=== PATIENT | male | born 1975 | race Two or more races ===

== ENCOUNTER 2023-12-11 01:06 | Inpatient (IN) | payer OTHER ==
[~2023-12-11] VITALS: Ht 180.3 cm; Wt 93.0 kg
[2023-12-11] MEDS ORDERED: CLONAZEPAM2 MG PO (01:16)
[2023-12-11] MEDS ORDERED: LEXAPRO20 MG (01:17)
[2023-12-11] MEDS ORDERED: OMEPRAZOLE40 MG PO (01:17)
[2023-12-11] MEDS ORDERED: CELEBREX200MG PO (01:18)
--- NOTE | 2023-12-11 01:18 | NUR ---
SE RECIBE PTE ALERTA Y ORIENTADO X3 EL MISMO REFIERE DOLOR DE COLLIN, CORPORAL Y DE GARGANTA DESDE HACE 3 VASQUEZ. REFIERE QUE TIENE NINA TOS SECA QUE NO LO JOSE DORMIR. SE LE MIDEN SV Y SE UBICA.
[2023-12-11] MEDS ORDERED: ALBUTEROL SULFATE 3 ML/2.5 MG AMPUL.NEB IH STA (03:00)
[2023-12-11] MEDS ORDERED: ACETAMINOPHEN 500 MG GEL..CAP PO STA (03:01)
[2023-12-11] MEDS ORDERED: HYDROCODONE/CHLORPHEN P-STIREX 5 ML ML PO STA (03:01)
[2023-12-11] MEDS ORDERED: ACETAMINOPHEN 500 MG GEL..CAP PO ONE (03:04)
--- NOTE | 2023-12-11 03:04 | NUR ---
PTE MASCULINO EVALUADO POR . SE ORIENTA SOBRE ORDEN DE TX REFIERE COMPRENDER. SE COLECTAN MUESTRAS DE LABORATORIOS, BAJO MEDIDAS ASEPTICAS. SE ADMINISTRAN MEDICAMENTOS, BAJO MEDIDAS ASEPTICAS. SE NOTIFICAN TERAPIAS Y ABGS A . SE NOTIFICA A RADIOLOGIA PARA XRAY PENDIENTE.
[2023-12-11] MEDS ORDERED: ALBUTEROL SULFATE 3 ML/2.5 MG AMPUL.NEB IH ONE ×5 (03:20→11:43)
[2023-12-11 03:27] LABS: ABG PH 7.446 (7.35-7.45); ABG PO2 67.2 mmHg (80-100); ABG pCO2 40.6 mmHg (35-45); BASE EXCESS 3.1 mmol/l; BICARBONATE 27.3 mmol/l (23-25); SaO2 94.1 %; Tco2 28.6 mmol/l
[2023-12-11 03:29] LABS: URINE APPEARANCE Clear; URINE BILIRRUBIN Negative (NEGATIVE); URINE BLOOD Small; URINE COLOR Yellow; URINE GLUCOSE Negative (NEGATIVE); URINE KETONE Negative (NEGATIVE); URINE LEUKOCYTE Negative; URINE NITRATE Negative; URINE PROTEIN Negative (NEGATIVE); URINE UROBILINOGEN 0.2 E.U./dl
[2023-12-11 03:30] LABS: HEMATOCRIT 38.2 % (39.0-48.0); HEMOGLOBIN 13.3 g/dL (13-16.00); MEAN CELL VOLUME 92.7 fL (80.0-100.00); MEAN CORPUSCULAR HEMOGLOBIN 32.3 pg (27.00-32.0); MEAN CORPUSCULAR HGB CONC 34.9 g/dl (32.0-36.0); PLATELET COUNT 350 K/uL (150-450); RED BLOOD COUNT 4.12 M/uL (4.00-6.00); RED CELL DISTRIBUTION WIDTH 13.8 % (11.5-14.5)
[2023-12-11 03:33] LABS: URINE WBC 1.9 uL (0.0-23.2)
[2023-12-11 03:38] LABS: URINE BACTERIA 0 uL (0.0-1933)
[2023-12-11 03:45] LABS: allen test SATISFACTORY; o2 21 %; puncture site RADIAL LEFT
[2023-12-11] MEDS ORDERED: ALBUTEROL SULFATE 3 ML/2.5 MG AMPUL.NEB IH SCH ×3 (04:00→12:00)
[2023-12-11] MEDS ORDERED: CEFTRIAXONE SODIUM 1,000 MG VIAL IV STA (05:04)
[2023-12-11] MEDS ORDERED: CEFTRIAXONE SODIUM 1,000 MG VIAL ONE (05:11)
--- NOTE | 2023-12-11 05:26 | NUR ---
SE KIMBERLY MUESTRAS DE LABORATORIO NUEVAS WILBER ORDEN MEDICA. SE NOTIFICAN TERAPIAS DE SEGUIMIENTO A PERSONAL DE TERAPIA RESPIRATORIA. SE COLOCA CN A 3LTS.
[2023-12-11] MEDS ORDERED: SODIUM CHLORIDE 0.45 % 1,000 ML IV SCH (10:45)
[2023-12-11] MEDS ORDERED: HYDROCODONE/CHLORPHEN P-STIREX 5 ML ML PO SCH (10:47)
[2023-12-11] MEDS ORDERED: CEFEPIME HCL 1,000 MG VIAL IV SCH (10:47)
[2023-12-11] MEDS ORDERED: DOXYCYCLINE HYCLATE 100 MG in 0.9 % SODIUM CHLORIDE 250 ML IV SCH (10:47)
[2023-12-11] MEDS ORDERED: PANTOPRAZOLE SODIUM 40 MG/VIAL VIAL IV PUSH SCH (10:48)
[2023-12-11] MEDS ORDERED: RIVAROXABAN 10 MG TAB PO SCH (10:49)
[2023-12-11] MEDS ORDERED: METHYLPREDNISOLONE SOD SUCC 40 MG VIAL IV SCH (10:49)
[2023-12-11] MEDS ORDERED: BUDESONIDE 0.5 MG/2 ML AMPUL.NEB IH SCH (10:51)
[2023-12-11 11:41] LABS: ABG PH 7.501 (7.35-7.45); ABG PO2 71.3 mmHg (80-100); ABG pCO2 35.6 mmHg (35-45); BASE EXCESS 4.2 mmol/l; BICARBONATE 27.2 mmol/l (23-25); SaO2 95.8 %; Tco2 28.3 mmol/l
[2023-12-11] MEDS ORDERED: GUAIFENESIN 200 MG/10 ML BLIST.PACK PO SCH (12:00)
[2023-12-11 12:11] LABS: o2 32 %; puncture site BRADIAL LEFT
[2023-12-11 12:49] LABS: ALBUMIN 3.3 gm/dL (3.4-5.0); BILIRUBIN TOTAL 0.39 mg/dL (0.3-1.2); CALCIUM 9.3 mg/dL (8.5-10.1); CREATININE SERUM 0.83 mg/dL (0.70-1.30); GFR 98.88; GLOBULINA 4.4 G/DL (2.4-3.5); POTASSIUM 3.83 mEq/L (3.5-5.1); TOTAL PROTEIN 7.7 gm/dL (6.4-8.2)
[2023-12-11] MEDS ORDERED: DOXYCYCLINE HYCLATE 100 MG CAPSULE PO ONE (13:15)
[2023-12-11] MEDS ORDERED: GUAIFENESIN 200 MG/10 ML BLIST.PACK PO ONE (13:20)
[2023-12-11] MEDS ORDERED: METHYLPREDNISOLONE SOD SUCC 125 MG VIAL ONE (13:57)
[2023-12-11] MEDS ORDERED: DOXYCYCLINE HYCLATE 100 MG CAPSULE PO SCH (21:00)
[2023-12-12 06:31] LABS: HEMATOCRIT 36.3 % (39.0-48.0); HEMOGLOBIN 12.4 g/dL (13-16.00); MEAN CELL VOLUME 92.7 fL (80.0-100.00); MEAN CORPUSCULAR HEMOGLOBIN 31.7 pg (27.00-32.0); MEAN CORPUSCULAR HGB CONC 34.2 g/dl (32.0-36.0); PLATELET COUNT 365 K/uL (150-450); RED BLOOD COUNT 3.92 M/uL (4.00-6.00)
[2023-12-12 07:05] LABS: INR 0.99; PROTHROMBIN TIME 10.4 SECONDS (9.0-11.5)
[2023-12-12 07:31] LABS: ALBUMIN 2.9 gm/dL (3.4-5.0); BILIRUBIN TOTAL 0.38 mg/dL (0.3-1.2); BILIRUBIN,CONJUGATED 0.13 mg/dL (0.0-0.2); BILIRUBIN,UNCONJUGATED 0.25 mg/dL (0.0-0.6); CREATININE SERUM 0.77 mg/dL (0.70-1.30); GFR 107.83; GLOBULINA 4.3 G/DL (2.4-3.5); MAGNESIUM 2.6 mg/dL (1.8-2.4); PHOSPHOROUS 4.2 mg/dL (2.5-4.9); POTASSIUM 4.75 mEq/L (3.5-5.1); PROSTATIC SPECIFIC ANTIGEN 0.74 NG/ML (0.010-4.00); T4 FREE 1.29 NG/ML (0.76-1.46); TOTAL PROTEIN 7.2 gm/dL (6.4-8.2); TSH 0.491 uIU/mL (0.358-3.74)
[2023-12-12 07:35] LABS: C-REACTIVE PROTEIN 16.4 MG/DL (0.00-0.29)
[2023-12-12 12:30] LABS: ob NEGATIVE (NEGATIVE)
[2023-12-12] MEDS ORDERED: GABAPENTIN 300 MG CAPSULE PO SCH ×2 (13:00→21:00)
[2023-12-12] MEDS ORDERED: DIVALPROEX SODIUM 250 MG TABLET.DR PO SCH ×2 (13:00→21:00)
[2023-12-12] MEDS ORDERED: CLONAZEPAM 1 MG TABLET PO SCH (13:00)
[2023-12-12] MEDS ORDERED: BUSPIRONE HCL 5 MG TABLET PO SCH ×2 (13:00→21:00)
[2023-12-12 13:22] LABS: FECAL LEUKOCYTES NEGATIVE (NEGATIVE)
[2023-12-12] MEDS ORDERED: PATIENTS OWN MEDICATION (MEDICAMENTO EN PISO) PO SCH ×3 (17:00→21:00)
[2023-12-12] MEDS ORDERED: PIPERACILLIN/TAZOBACTAM SODIUM 3.375 GM in DEXTROSE 5 % IN WATER 100 ML IV SCH (18:00)
[2023-12-12] MEDS ORDERED: CARBAMAZEPINE 200 MG TABLET PO SCH (21:00)
[2023-12-13] MEDS ORDERED: PATIENTS OWN MEDICATION (MEDICAMENTO EN PISO) PO SCH (09:00)
[2023-12-13] MEDS ORDERED: DEXTROSE 5%-WATER 100ML IV.SOLN ONE (16:16)
[2023-12-13] MEDS ORDERED: KETOROLAC TROMETHAMINE 30 MG VIAL IV PRN (18:30)
[2023-12-13] MEDS ORDERED: HYDROCODONE/CHLORPHEN P-STIREX 5 ML ML PO SCH (21:00)
[2023-12-13] MEDS ORDERED: CYCLOBENZAPRINE HCL 5 MG TABLET PO SCH (21:00)
[2023-12-14 18:23] LABS: ABG PH 7.426 (7.35-7.45); ABG pCO2 43.9 mmHg (35-45); BASE EXCESS 3.3 mmol/l; BICARBONATE 28.2 mmol/l (23-25); SaO2 90.5 %; Tco2 29.6 mmol/l
[2023-12-14 18:30] LABS: ABG PO2 57.4 mmHg (80-100); allen test SATISFACTORY; o2 21 %; puncture site RADIAL RIGHT
[2023-12-15] MEDS ORDERED: CLONAZEPAM 1 MG TABLET PO SCH ×2 (09:00→21:00)
[2023-12-15 15:15] LABS: HEMATOCRIT 38.2 % (39.0-48.0); HEMOGLOBIN 12.9 g/dL (13-16.00); MEAN CELL VOLUME 93.9 fL (80.0-100.00); MEAN CORPUSCULAR HEMOGLOBIN 31.6 pg (27.00-32.0); MEAN CORPUSCULAR HGB CONC 33.6 g/dl (32.0-36.0); PLATELET COUNT 453 K/uL (150-450); RED BLOOD COUNT 4.07 M/uL (4.00-6.00); RED CELL DISTRIBUTION WIDTH 13.6 % (11.5-14.5)
[2023-12-15 15:39] LABS: ALBUMIN 2.9 gm/dL (3.4-5.0); BILIRUBIN TOTAL 0.32 mg/dL (0.3-1.2); CALCIUM 8.8 mg/dL (8.5-10.1); CREATININE SERUM 0.86 mg/dL (0.70-1.30); GFR 94.91; GLOBULINA 3.8 G/DL (2.4-3.5); MAGNESIUM 2.2 mg/dL (1.8-2.4); PHOSPHOROUS 3.3 mg/dL (2.5-4.9); POTASSIUM 4.16 mEq/L (3.5-5.1); TOTAL PROTEIN 6.7 gm/dL (6.4-8.2)
[2023-12-15 15:42] LABS: C-REACTIVE PROTEIN 4.24 MG/DL (0.00-0.29)
[2023-12-15] MEDS ORDERED: FUROsemide 20 MG/2 ML VIAL IV SCH (19:30)
[2023-12-16] MEDS ORDERED: ALBUTEROL SULFATE 3 ML/2.5 MG AMPUL.NEB IH SCH (13:00)
[2023-12-16] MEDS ORDERED: DEXTROSE 5%-WATER 100ML IV.SOLN ONE (23:48)
[2023-12-17] MEDS ORDERED: DEXTROSE 5%-WATER 100ML IV.SOLN ONE (01:23)
[2023-12-18 13:56] LABS: ABG PH 7.433 (7.35-7.45); ABG pCO2 44.4 mmHg (35-45); BASE EXCESS 4.1 mmol/l; SaO2 90.4 %; Tco2 30.3 mmol/l
[2023-12-18 14:01] LABS: ABG PO2 56.7 mmHg (80-100)
[2023-12-18 14:02] LABS: allen test SATISFACTORY; o2 21 %; puncture site RADIAL LEFT
[2023-12-18 15:06] LABS: hiv 1 < 20 (.)
[2023-12-18 15:24] LABS: ABG PH 7.441 (7.35-7.45); ABG PO2 68.2 mmHg (80-100); ABG pCO2 43.5 mmHg (35-45); BASE EXCESS 4.2 mmol/l; BICARBONATE 28.9 mmol/l (23-25); SaO2 94.3 %; Tco2 30.2 mmol/l
[2023-12-18 15:25] LABS: allen test SATISFACTORY; o2 21 %; puncture site RADIAL RIGHT
[2023-12-18 19:29] LABS: ABG PH 7.416 (7.35-7.45); ABG pCO2 45.2 mmHg (35-45)
[2023-12-18 19:30] LABS: ABG PO2 232.3 mmHg (80-100); BASE EXCESS 3.2 mmol/l; BICARBONATE 28.4 mmol/l (23-25); SaO2 99.8 %; Tco2 29.8 mmol/l; o2 100 %; puncture site RADIAL LEFT
[2023-12-18 19:31] LABS: allen test SATISFACTORY
[2023-12-18] MEDS ORDERED: PANTOPRAZOLE SODIUM 40 MG/VIAL VIAL IV PUSH SCH (21:00)
[2023-12-18] MEDS ORDERED: HYDROCODONE/CHLORPHEN P-STIREX 5 ML ML PO SCH (21:00)
[2023-12-19 05:34] LABS: HEMOGLOBIN 13.1 g/dL (13-16.00); MEAN CELL VOLUME 93.9 fL (80.0-100.00); MEAN CORPUSCULAR HEMOGLOBIN 31.7 pg (27.00-32.0); MEAN CORPUSCULAR HGB CONC 33.7 g/dl (32.0-36.0); PLATELET COUNT 413 K/uL (150-450); RED BLOOD COUNT 4.15 M/uL (4.00-6.00)
[2023-12-19 06:03] LABS: CALCIUM 8.7 mg/dL (8.5-10.1); CREATININE SERUM 0.82 mg/dL (0.70-1.30); GFR 100.28; POTASSIUM 4.08 mEq/L (3.5-5.1)
[2023-12-19] MEDS ORDERED: DEXTROSE 5%-WATER 100ML IV.SOLN ONE (08:15)
[2023-12-19] MEDS ORDERED: ALBUTEROL2.5 MG/3 M IH (09:32)
[2023-12-19] MEDS ORDERED: XARELTO10 MG PO (09:33)
[2023-12-19] MEDS ORDERED: CELEBREX200MG PO (09:33)
[2023-12-19] MEDS ORDERED: OMEPRAZOLE40 MG PO (09:34)
[2023-12-19] MEDS ORDERED: BUDESONIDE0.5 MG/2 M IH (09:34)
[2023-12-19] MEDS ORDERED: TUSSIN MUC100 MG/5 M PO (09:34)
[2023-12-19] MEDS ORDERED: CEFDINIR300 MG PO (09:35)
== END 2023-12-19 12:53 | disposition home or self-care (01) | DRG 195 ==
LOC: ER 01:07 → SEC-K 11:15 → MEDI 11:15
PROVIDERS: General Practice; Internal Medicine; Internal Medicine Infectious Disease; ADMIT Internal Medicine; ATTEND Internal Medicine
PROC: BB24ZZZ Computerized Tomography (CT Scan) of Bilateral Lungs (ICD-10-PCS; principal; 2023-12-11)
PROC: 3E0F7GC Introduction of Other Therapeutic Substance into Respiratory Tract, Via Natural or Artificial Opening (ICD-10-PCS; 2023-12-11)
PROC: BB24YZZ Computerized Tomography (CT Scan) of Bilateral Lungs using Other Contrast (ICD-10-PCS; 2023-12-14)
DX: J18.0 Bronchopneumonia, unspecified organism (principal); R14.0 Abdominal distension (gaseous); Z86.16 Personal history of COVID-19; R09.02 Hypoxemia